=== PATIENT | female | born 1960 | race Two or more races ===

== ENCOUNTER → 2018-02-04 07:45 | Outpatient (CLI) | payer BC, SELFPAY ==
--- NOTE | 2018-02-04 07:45 | KNEE_PTH ---
PATIENT: ARELIS SHARPE LOC: [facility] U#:[id number] AGE/SX: 64/F ROOM: RE02/04/[address]: Dr. Juanito Verma MD : 1960 BED: DIS: SPEC #: [id number] RECD: 02/04/18 15:26 STATUS: TD MALI #: [id number] RUBIA: 02/04/18 07:[address]: Juanito Verma DEPT: SURGICAL PATHOLOGY RECD BY: Wilman Roberts ENTERED: 02/05/18 07:58 SP TYPE: TOTAL KNEE OTHR DR: LLOYD Tissues: Knee, NOS Procedures: Decalcification bone/plaque Surgery Specimen Level IV HEADER OPERATION: Left total knee arthroplasty PRE-OP DIAGNOSIS: Osteoarthritis, left knee, severe TISSUE SUBMITTED: Bone left knee MICROSCOPIC DIAGNOSIS Bone and soft tissue, left knee, total knee replacement/resection: Pieces of bone with degenerative osteoarthritic changes. Fibroadipose tissue, fibroconnective tissue and reactive synovial tissue. SJ:peter 02/10/18 MICROSCOPIC DESCRIPTION Slides are reviewed. GROSS DESCRIPTION Received is one container designated bone and soft tissue left knee. The specimen consists of multiple fragments of cazares-yellow bone measuring in aggregate 10 x 10 x 4 cm. Also in the specimen container are multiple fragments of yellow-white soft tissue measuring in aggregate 5 x 5 x 2.5 cm. A number of bony fragments contain articular surfaces consistent with tibial plateau and femoral condyle and displaying prominent osteophyte formation, eburnation, and bone erosion. Transitions Rn Care Coordinator sections are submitted in two cassettes as follows: 1 - soft tissue, 2 - bone after decalcification. / MICHELLE:peter 02/05/18 TC:5 [facility]: [id number], [id number]
--- OUTSIDE RECORDS SUMMARY | 2018-04-01 22:35 | XMS RPT_ITS ---
:1960 Author Organization [place] Care Team Providers Name Role Phone Ajay Jackson Attending Unavailable Juanito Verma Attending Unavailable Juanito Verma Attending Unavailable Juanito Verma Consulting Unavailable Tracie Garcia Attending Unavailable PROVIDER, UNKNOWN Referring Unavailable Serena Degroot Primary Care Unavailable Ajay Jackson Attending Unavailable Juanito Verma Attending Unavailable Juanito Verma Referring Unavailable PROBLEMS PROBLEMS DATE TYPE CONDITION / CODE ATTENDING STATUS SOURCE 01/26/2018 Active Z01.818 - Encounter Tracie Garcia Active [facility]ene for other R [facility] health Hospital examination / Repository Z01.818(ICD-10) 09/02/2017 Admitting Intestinal Ajay Jackson Active [facility] Diagnosis malabsorption, System unspecified / Repository K90.9(ICD-10) 09/02/2017 Admitting Deficiency of Ajay Jackson Active [facility] Diagnosis multiple nutrient System elements / Repository E61.7(ICD-10) PROCEDURES PROCEDURES No Procedure Records FoundRESULTS RESULTS TOTAL KNEE REPLACEMENT Observed: 02/04/2018 Status: F Source: [place] 7:45 AM [facility] Patient: KEYANA SHARPE : 1960 (58/F) Acct Num: [id number] Phys: Bayron AGUILAR,Juanito Unit Num: [id number] Loc: LABSPEC Specimen: [id number] Received: 02/04/181525 Spec Type: TOTAL KNEE TISSUES 1 TISSUES: Knee, NOS GROSS DESCRIPTION Received is one container designated bone and soft tissue left knee. The specimen consists of multiple fragments of cazares-yellow bone measuring in aggregate 10 x 10 x 4 cm. Also in the specimen container are multiple fragments of yellow-white soft tissue measuring in aggregate 5 x 5 x 2.5 cm. A number of bony fragments contain articular surfaces consistent with tibial plateau and femoral condyle and displaying prominent osteophyte formation, eburnation, and bone erosion. Marketing Segment Manager sections are submitted in two cassettes as follows : 1 - soft tissue, 2 - bone after decalcification. / MICHELLE:peter 02/05/18 TC:5 CPT: 87460, 85505 HEADER OPERATION: Left total knee arthroplasty PRE-OP DIAGNOSIS: Osteoarthritis, left knee, severe TISSUE SUBMITTED: Bone left knee MICROSCOPIC DESCRIPTION Slides are reviewed. MICROSCOPIC DIAGNOSIS Bone and soft tissue, left knee, total knee replacement/resection: Pieces of bone with degenerative osteoarthritic changes. Fibroadipose tissue, fibroconnective tissue and reactive synovial tissue. MICHELLE:peter 02/10/18 Signed Bijan López 02/10/18 <signature on file> Performed By: #### PKNEE #### [facility] [place], [address] CBC WITH AUTO DIFF Collected: 01/26/2018 Status: F Source: [place] 7:16 AM [facility] TYPE CODE TESTS RESULT OUT OF RANGE REFERENCE UNITS LAB WBC 4.0-11.0 K/uL WHITE BLOOD Normal COUNT 4.0 LAB RBC 4.20-5.50 M/uL RED BLOOD Normal COUNT 4.43 LAB HGB 12.0-16.0 g/dL HEMOGLOBIN Normal 13.5 LAB HCT 37.0-47.0 % HEMATOCRIT Normal 39.4 LAB MCV 80-97 fL MEAN CELL Normal VOLUME 89.0 LAB MCH 26.0-32.0 pg MEAN Normal CORPUSCULAR HGB 30.4 LAB MCHC 31.0-36.0 g/dL MEAN Normal CORPUSCULAR HGB 34.1 CONC LAB RDW 11.0-15.5 % RED CELL Normal DISTRI WIDTH 13.4 LAB PLT 140-450 K/uL PLATELET Normal COUNT 209 LAB MPV 6.6-10.5 fl MEAN Normal PLATELET VOLUME 8.9 LAB GR% 42-80 % GRAN % Normal 46.7 LAB LY% 16-48 % LYMPH % Normal 35.7 LAB MO% 3-9 % High MONO % 11.2 LAB EO% 0-8 % EOS % Normal 5.3 LAB BASO% 0-2 % BAS0 % Normal 1.10 LAB GR# 2.2-9.1 K/uL Low GRAN # 1.9 LAB LY# 1.0-4.0 K/uL LYMPH # Normal 1.4 LAB MO# 0.1-1.7 K/uL MONO # Normal 0.5 LAB EO# 0.0-1.80 K/uL EOS # Normal 0.2 LAB BA# 0-0.1 K/ul BASO # Normal 0.0 Performed By: #### CBC #### [address] [address] BASIC METABOLIC PANEL Collected: 01/26/2018 Status: F Source: [place] 7:16 AM [facility] TYPE CODE TESTS RESULT OUT OF RANGE REFERENCE UNITS LAB GLU 70-100 mg/dL GLUCOSE Normal 84 LAB BUN 7-18 mg/dL BUN Normal 13.0 LAB CRE 0.4-1.2 mg/dL Normal CREATININE 0.70 LAB NA 136-147 MMOL/L SODIUM Normal 141 LAB K 3.6-5.2 MMOL/L Normal POTASSIUM 4.0 LAB CL 98-107 MMOL/L CHLORIDE Normal 106 LAB CO2 21-32 MMOL/L CARBON Normal DIOXIDE 29.0 LAB GAP 11-23 Low ANION GAP 9.8 LAB SOURAV 8.5-10.1 mg/dL Low CALCIUM 8.3 LAB GFR mL/min GFR > 60.0 LAB GFRAA mL/min GFR AM > 60.0 Result Comment: THE NORMAL LEVEL OF GFR VARIES ACCORDING TO AGE, SEX, AND BODY SIZE. A GFR LEVEL OF LESS THAN 60 ML/MIN REPRESENTS LOSS OF THE ADULT LEVEL OF NORMAL KIDNEY FUNCTION. Performed By: #### [facility] #### [address] [address] LOWER EXT W/O Observed: 12/20/2017 Status: F Source: [place] CONTRAST-LT 10:01 PM [facility] KEYANA SHARPE Female [id number] Ordering physician: Juanito Verma. LOC:CAT [id number] Attending physician: Juanito Verma 1960 57 DOS: 12/18/17 Acc#: [id number] Exam/Proc: LOWER EXT W/O CONTRAST-LT Dept: COMPUTED TOMOGRAPHY INDICATION: Left knee pain. TECHNIQUE: Thin section axial images were obtained through the left knee withot intravenous contrast. Orthogonal reconstructed images were obtained and reviewed. Automated mA/kV exposure control was utilized and patient examination was perfomed in strict accordance with principles of ALARA. RADIATION AMOUNT: 939.80 mGy-cm. COMPARISON: MRI left knee 05/26/2012. FINDINGS: Knee alignment is anatomic. 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 Moderate tibial spine and notch osteophytes noted within the knee. There is mild lateral compartment peripheral osteophytes with minimal joint space narrowing. Mild proximal tibiofibular degenerative change present. Sagittal reformatted images reveal advanced patellofemoral degenerative change with osteophytes. Posterior joint debris noted. Extensor mechanism intact. Select axial images through the right hip demonstrate mild degenerative change. Select axial images through the left ankle reveal moderate tibiotalar degenerative change with some posterior subtalar joint debris. IMPRESSION: 1. Degenerative change of the knee as described for preoperative assessment. 2. Mild left hip degenerative change. 3. Moderate ankle degenerative changes. Signed by Toney Jensen MD REPORT SIGNATURE ON FILE Electronically Signed Date/Time: 12/20/172200 Dictated Date/time: 12/20/172200 CC: IRON Collected: 07/21/2017 Status: F Source: [place] 7:06 AM [facility] TYPE CODE TESTS RESULT OUT OF RANGE REFERENCE UNITS LAB FE 50-170 ug/dL Normal IRON 82 Performed By: #### VB12, AMADOR, FE, MG, FOL #### [facility] [address] [place] [address] VITAMIN B 12 Collected: 07/21/2017 Status: F Source: [place] 7:06 AM [facility] TYPE CODE TESTS RESULT OUT OF REFERENCE UNITS RANGE LAB VB12 193-986 pg/mL High VITAMIN B 12 1515 Performed By: #### VB12, AMADOR, FE, MG, FOL #### [address] [place] [address] FOLIC ACID Collected: 07/21/2017 Status: F Source: [place] 7:06 AM [facility] TYPE CODE TESTS RESULT OUT OF RANGE REFERENCE UNITS LAB FOL 3.1-17.5 ng/mL High FOLIC > 20.0 ACID Performed By: #### VB12, AMADOR, FE, MG, FOL #### [address] [place] [address] FERRITIN Collected: 07/21/2017 Status: F Source: [place] 7:06 AM [facility] TYPE CODE TESTS RESULT OUT OF RANGE REFERENCE UNITS LAB AMADOR 8-252 ng/mL Normal FERRITIN 37.6 Performed By: #### VB12, AMADOR, FE, MG, FOL #### [facility] [address] [place] [address] MAGNESIUM Collected: 07/21/2017 Status: F Source: [place] 7:06 AM [facility] TYPE CODE TESTS RESULT OUT OF RANGE REFERENCE UNITS LAB MG 1.8-2.4 mg/dL Normal MAGNESIUM 2.4 Performed By: #### VB12, AMADOR, FE, MG, FOL #### [address] [place] [address] VIT D 25 [place] Collected: 07/21/2017 Status: F Source: [place] 7:06 AM [facility] TYPE CODE TESTS RESULT OUT OF RANGE REFERENCE UNITS LAB VD25OH 30-80 ng/mL VIT D 25 47 [place] Result Comment: INTERPRETIVE INFORMATION: Vitamin D, 25-Hydroxy This assay accurately quantifies the sum of vitamin D3, 25-hydroxy and vitamin D2, 25-hydroxy. 0-17 years: Deficiency: less than 20 ng/mL Optimum level: greater than or equal to 20 ng/mL* *(Pierson CL et al. Pediatrics 2008; 122: 1142-52.) 18 years and older: Deficiency: Less than 20 ng/mL Insufficiency: 20-29 ng/mL Optimum Level: 30-80 ng/mL Possible Toxicity: Greater than 150 ng/mL Performed by [employer], [address] [place] [address] [email or web address], Jonathan Rosario MD, Lab. Director Performed By: #### VD25OH #### [facility] #[id number] [address] [place] [address] ZINC Collected: 07/21/2017 Status: F Source: [place] 7:06 [facility] REPOSITORY TYPE CODE TESTS RESULT OUT OF RANGE REFERENCE UNITS LAB ZI 60-120 ug/dL ZINC 76 Result Comment: INTERPRETIVE INFORMATION: Zinc, Serum or Plasma Circulating zinc concentrations are dependent on albumin status and are depressed with malnutrition. Zinc may also be lowered with infection, inflammation, stress, oral contraceptives, and . Zinc may be elevated with zinc supplementation or fasting. Elevated zinc concentrations may interfere with copper absorption. Test developed and characteristics determined by [employer]. See Compliance Statement B: Scan•Jour/ Performed by [employer], [address] [place] [address] [email or web address], Jonathan Rosario MD, Lab. Director Performed By: #### ZI #### [facility] #[id number] [address] [place] [address] VITAMIN B1 (THIAMINE) Collected: 07/21/2017 Status: F Source: [place] WHOLE BL 7:06 AM [facility] TYPE CODE TESTS RESULT OUT OF REFERENCE UNITS RANGE LAB B1WB 70-180 nmol/L VITAMIN B1 113 (THIAMINE) WHOLE BL Result Comment: INTERPRETIVE INFORMATION: Vitamin B1, Whole Blood This assay measures the concentration of thiamine diphosphate (TDP), the primary active form of vitamin B1. Approximately 90 percent of vitamin B1 present in whole blood is TDP. Thiamine and thiamine monophosphate, which comprise the remaining 10 percent, are not measured. Test developed and characteristics determined by [employer]. See Compliance Statement B: Scan•Jour/CS Performed by [employer], [address] [place] [address] [email or web address]•Jour, Jonathan Rosario MD, Lab. Director Performed By: #### B1WB #### [facility] #[id number] [place] [address] ALLERGIES ALLERGIES DATE TYPE / CODE NAME / CODE REACTION SEVERITY SOURCE 05/28/2012 Drug No Known Drug Unknown [place] Allergy/4160 Allergy/M0000 Community 13628(SNOMED 228968([facility]ly [facility]) ) Repository ENCOUNTERS ENCOUNTERS ADMIT/DISCHARGE ACCOUNT NUMBER ADMITTING ENCOUNTER LOCATION SOURCE CLASS 02/04/2018 [id number] General acute hospital ding:[facility]SPEC Repository 01/26/2018 [id number] [facility] ding:LB Repository 12/18/2017 [id number] [facility] ding:CAT Repository 12/10/2017 [id number] [facility] ding:EKG Repository 09/02/2017 [id number] [facility] Repository 07/21/2017 [id number] [facility] ding:LB Repository PAYERS PAYERS ENCOUNTER GUARANTOR PAYER SUBSCRIBER SOURCE 02/04/2018 KEYANA Grijalva Primary JOHN ALDRIGEUNK [place] [id number] [facility] Number: [place], [place] [id number] Repository [address]Fqn: [phone]) Date:4445-49-89CU [phone] () 499[address]ITAEVQN, [place] [address]NI: 02/04/2018 Secondary NOT GIVENUNK [place] Insurance:SELF PAY [facility] Number: Effective Repository Date:2018-02-04 01/26/2018 KEYANA Grijalva Primary JOHN [place] [id number] [facility] SHASTAIDGEDOB: [facility] Number: [id number] Repository [facility], [place] Date:0497-96-92CL [place], [place] [address]Zfr: [phone], [place] [phone] () [address]FI: 01/26/2018 Secondary KEYANA E [place] Insurance:SELF ALDRIDGEUNK Community PAYPolicy Number: Hospital Effective Repository Date:2018-01-26 12/18/2017 KEYANA E Primary JOHN [place] [id number] Insurance:ANTHEM BLUE ALDRIDGEDOB: Community [address] CROSSPolicy Number: [id number] [id number] [address] Repository [facility], [place] Date:4201-60-98HP [place], [place] [address]Olv: [phone], [place] [phone] () [address]MK: 12/18/2017 Secondary KEYANA E [place] Insurance:SELF ALDRIDGEUNK Community PAYPolicy Number: Hospital Effective Repository Date:2017-12-11 12/10/2017 Keyana E Primary John [place] [id number] Insurance:ANTHEM BLUE AldridgeDOB: Community [address] CROSSPolicy Number: [id number] Repository [facility], [place] Date:3540-36-72VM [place], [place] [address]Cnm: [phone], [place] [phone] () [address]DB: 12/10/2017 Secondary KEYANA E [place] Insurance:SELF ALDRIDGEUNK Community PAYPolicy Number: Hospital Effective Repository Date:2017-12-10 09/02/2017 Keyana E Primary [facility] AldridgeDOB: Insurance:[place] AldridgeDOB: System Cross Blue [id number] Repository [address] ShieldPolicy Number: Ave Effective Date: [place], [place] [address]Vsc: () 07/21/2017 Keyana Grijalva Primary John [place] [id number] Insurance:MARY AyalaidgeDOB: Community [facility] Number: [id number] [facility], [id number] [facility] [place] Repository [place] [address]Ugc: Date:1892-47-91[place]WDallas[place] [address] ~33 [id number], [place] 0-8 () [address]RI: 07/21/2017 Secondary KEYANA López Insurance:[facility] YENIFER [facility] [place] [facility] Effective Repository Date:2017-07-21
== END ==
PROVIDERS: Referring Provider Orthopaedic Surgery; Visit Provider Orthopaedic Surgery
DX: M17.12 Unilateral primary osteoarthritis, left knee (principal)
CPT/HCPCS: 88305; 88311